=== PATIENT | female | born 1965 | race Caucasian/White ===

== ENCOUNTER 2023-05-19 11:39 | Day surgery (SDC) | payer BC, SELFPAY ==
--- NOTE | 2023-05-18 10:58 | HO.ANESPROP2 ---
HPI - Anesthesia Eval Consult details Narrative: 57yo F for Colonoscopy PMFSH Past Medical History Medical History (Updated 05/16/23 @ 20:01 by Val Houser, RN) IBS (irritable bowel syndrome) Hyperlipidemia HTN (hypertension) Surgical History Surgical History (Updated 05/16/23 @ 19:57 by Val Houser, [place]) History of gynecological procedure History of section Meds Allergies Allergy/AdvReac Type Severity Reaction Status Date / Time No Known Allergies Allergy Unverified 05/14/23 20:53 Home Medications Medication Instructions Recorded Confirmed Last Taken Type cetirizine 10 mg tablet (Zyrtec) 10 mg PO DAILY PRN Allergic 05/16/23 05/16/23 Unknown History Symptoms cholecalciferol (vitamin D3) 25 25 mcg PO DAILY 05/16/23 05/16/23 Unknown History mcg (1,000 unit) tablet (Vitamin D3) levocetirizine 5 mg tablet (Xyzal) 5 mg PO DAILY 05/16/23 05/16/23 Unknown History lisinopril 5 mg tablet 5 mg PO DAILY 05/16/23 05/16/23 Unknown History simvastatin 5 mg tablet 5 mg PO BEDTIME 05/16/23 05/16/23 Unknown History Assessment and Plan Assessment Anesthesia Assessment: Chart Reviewed
[2023-05-19 12:18] VITALS: BMI 24.4
[2023-05-19] MEDS: Lactated Ringers 1,000 ML 100 ML IVCONT (12:19)
[2023-05-19 12:25] VITALS: BP 137/83; PULSE 78; RESP 18; TEMP 36.9; O2SAT 97
--- NOTE | 2023-05-19 12:57 | HO.ANESPROP2 ---
[facility] Past Medical History Medical History IBS (irritable bowel syndrome) Hyperlipidemia HTN (hypertension) Functional capacity: independent ambulation Family History Family history of problems with anesthesia: No Surgical History Surgical History History of gynecological procedure History of section History of Problems with Anesthesia: No Social History Social History Patient Tobacco Use Status: Former Tobacco user Substance Use Frequency: Daily Are you DNR?: No Advance Directives: No Advance Directives Information Provided: Yes Nutrition Risks: No Nutritional Risk Meds Allergies Allergy/AdvReac Type Severity Reaction Status Date / Time No Known Allergies Allergy Verified 05/19/23 12:26 Active Medications: Current Medications Lactated Ringer's (Lr) 1,000 mls @ 100 mls/hr IVCONT .Q10H SENIA Last Admin: 05/19/23 12:19 Dose: 100 mls/hr Sodium Biphosphate/Sodium Phosphate (Sodium Phosphate,Mchenry-Dibasic 133 Ml Enema) 133 ml NH ONCE PRN PRN Reason: Poor Colonoscopy Prep Results Home Medications Medication Instructions Recorded Confirmed Last Taken Type cetirizine 10 mg tablet (Zyrtec) 10 mg PO DAILY PRN Allergic 05/16/23 05/16/23 Unknown History Symptoms cholecalciferol (vitamin D3) 25 25 mcg PO DAILY 05/16/23 05/16/23 Unknown History mcg (1,000 unit) tablet (Vitamin D3) levocetirizine 5 mg tablet (Xyzal) 5 mg PO DAILY 05/16/23 05/16/23 Unknown History lisinopril 5 mg tablet 5 mg PO DAILY 05/16/23 05/16/23 05/19/23 History simvastatin 5 mg tablet 5 mg PO BEDTIME 05/16/23 05/16/23 Unknown History Exam Height,Weight and Vital Signs: Height 5 ft 6 in Weight 68.492 kg Last Vital Signs Temp 98.4 F 05/19/23 12:25 Pulse 78 05/19/23 12:25 Resp 18 05/19/23 12:25 BP 137/83 05/19/23 12:25 Pulse Ox 97 05/19/23 12:25 O2 Del Method Room Air 05/19/23 12:25 Airway Mallampati Class: II TM Dist: >3cm Neck ROM: Full Heart: RRR Lungs: CTA Assessment and Plan Assessment Anesthesia Assessment: Anesthesia Plan Discussed Final Anesthetic Review Family History of Problems with Anesthesia: No History of Problems with Anesthesia: No ASA Class: II Final Preanesthetic Review: Meds/Allgs Chart Reviewed, Consent Obtained/Reviewed and Anes Risks/Benef Reviewed Patient Risk: Low Procedure Risk: Low Anesthetic Plan Anesthetic Plan: GA Disposition: Standard PACU
[2023-05-19 14:25] VITALS: BP 140/82; PULSE 77; RESP 16; TEMP 36.7; O2SAT 99
--- NOTE | 2023-05-19 14:27 | HO.POSTANES ---
Post Anesthesia Evaluation Post Anesthesia Evaluation Date of Service: 05/19/23 Vital Signs: Vital Signs Temp Pulse Resp BP Pulse Ox O2 Del Method 05/19/23 12:25 98.4 F 78 18 137/83 97 Room Air Anesthesia: TIVA Mental Status: Awake Pain Control: Satisfactory Nausea/Vomiting: None Hydration: Adequate Anesthesia-Related Issues: No Anes. Related Issues
--- NOTE | 2023-05-19 14:29 | PM.OP ---
Brief Operative Note Date of Service: 05/19/23 Pre-op diagnosis: Screening Post-op diagnosis: other (Colon polyps) Procedure: Colonoscopy to the cecum and TI with biopsy/removal of polyps, and hot snare polypectomy x 1 in ascending colon Surgeon: Dereck Rangel MD Anesthesia: MAC Was an Traffic Inspector used for this Procedure?: No Estimated blood loss (mL): 2.0 Pathology: other (A. Ascending colon polyp B. Cecal polyp C. Transverse colon polyp D. Rectal polyps) Condition: stable Disposition: PACU
[2023-05-19 14:40] VITALS: BP 143/81; PULSE 67; RESP 18; TEMP 36.4; O2SAT 99
--- NOTE | 2023-05-19 22:52 | OP_ITS ---
DATE OF SERVICE: 05/19/2023 SURGEON: Dereck Rangel MD INDICATIONS: The patient presents for evaluation of colorectal cancer screening. Full consent has been obtained from her for this, including risks of bleeding and perforation. PREOPERATIVE DIAGNOSIS: Colorectal cancer screening. POSTOPERATIVE DIAGNOSIS: PROCEDURE PERFORMED: Colonoscopy to the cecum and terminal ileum with hot snare polypectomy x1, and biopsy and removal of polyps. ESTIMATED BLOOD LOSS: COMPLICATIONS: ANESTHESIA: Monitored anesthesia care. ASSISTANTS: SPECIMENS: POSTOPERATIVE DIAGNOSES: Colorectal cancer screening, colon polyps, diverticulosis, and internal hemorrhoids. DESCRIPTION OF PROCEDURE: The patient was placed in the left lateral decubitus position. The digital rectal exam revealed no abnormalities. The Olympus video pediatric colonoscope was entered into the rectum and advanced easily to the cecum. Once in the cecum I did identify normal-appearing cecal pouch other than a 3 mm polyp, which was biopsied and completely removed with a cold biopsy forceps. The remainder of the cecum and appendiceal orifice appeared normal. The terminal ileum was cannulated and appeared normal. The scope was withdrawn back in the colon. The scope was slowly withdrawn assessing all mucosal surfaces carefully. Preparation was excellent. In the ascending colon was an approximately 8 mm polyp, which was removed by hot snare polypectomy and recovered by suction. The polypectomy site appeared clean, without any sign of residual polyp nor bleeding. In the transverse colon was an approximately 3 or 4 mm polyp, which was biopsied and completely removed with a cold biopsy forceps. In the rectum, were several probable hyperplastic, 3 or 4 mm polyps, which were all biopsied and completely removed with a cold biopsy forceps. There was a mild amount of sigmoid diverticulosis. There was no evidence of any colitis nor angiodysplasia. In the rectum, scope was retroflexed visualizing internal hemorrhoids, but no other pathology. The rectal mucosa appeared normal. The scope was straightened and withdrawn from the patient. She tolerated the procedure well and was returned to the recovery area in stable condition. IMPRESSION: 1. Colon polyps. 2. Diverticulosis. 3. Internal hemorrhoids. PLAN: The results of the pathology will be checked. If these are tubular adenomas, I would recommend a followup coloscopy in 5 years. If they are all hyperplastic, I would recommend a followup coloscopy in 10 years. She was advised not to use any aspirin and NSAIDs for 1 week. She will otherwise see me on a p.r.n. basis. MD ANNA Doll/PHILL / [phone]
== END 2023-05-19 15:05 | disposition home or self-care (01) ==
PROVIDERS: Visit Provider Internal Medicine
PROC: 0DJD8ZZ Inspection of Lower Intestinal Tract, Via Natural or Artificial Opening Endoscopic (ICD-10-PCS; CPT 45378; principal; 2023-05-19 13:00)
DX: Z12.11 Encounter for screening for malignant neoplasm of colon (principal); D12.0 Benign neoplasm of cecum; D12.2 Benign neoplasm of ascending colon; D12.3 Benign neoplasm of transverse colon; K62.1 Rectal polyp; K57.30 Diverticulosis of large intestine without perforation or abscess without bleeding; K64.8 Other hemorrhoids; I10 Essential (primary) hypertension; E78.5 Hyperlipidemia, unspecified; K58.9 Irritable bowel syndrome, unspecified; Z87.891 Personal history of nicotine dependence; Z79.899 Other long term (current) drug therapy
CPT/HCPCS: 45385; 45380; 88305; J2704